=== PATIENT | female | born 1980 | race Two or more races ===

== ENCOUNTER 2016-10-30 21:41 | Emergency (ER) | payer OTHER ==
--- NOTE | ~2016-10-30 | CR72 ---
[facility] A Service of [facility] & [facility] RADIOLOGY TEXT RESULTS PATIENT: ARCADIO COATES LOCATION: CFTX : 82 UNIT #: [id number] AGE: [address]: Shahla Bryson APRN SEX: F ORDER DR: [id number] [facility] [address] [place], [place] [address] [id number] E MR#: [id number] Acc #: [id number] NAME: ARCADIO COATES : 1980 SEX: F STUDY DATE/TIME: 10/31/2016 0040 UNIT: [facility] ROOM: STUDY DESCRIPTION: CR Chest Single View Portable Attending Physician: Shahla Bryson A.P.R.N. Ordering Physician: Shahla Bryson A.P.R.N. Primary Care Physician: No Primary Care Physician MEDICAL IMAGING REPORT This report is preliminary unless electronic signature is present EXAM Portable chest, 10/31, 0048 hours, INDICATION Fever, cough, shortness of air for 2 days. FINDINGS AP portable chest was obtained. No comparison. Lungs are clear. Heart is enlarged. Vascularity is normal. There is no pneumothorax. IMPRESSION Cardiomegaly. No active disease. Dictated by... Cornelius Salas Jr., M.D. THIS IS AN ELECTRONICALLY VERIFIED REPORT Cornelius Salas Jr., M.D. at 10/31/2016 9:22 PM FINESSE/claudia TD: 10/31/2016 12:04 JOB #: [id number] MEDICAL IMAGING REPORT Page 1 of 1 COPY
[~2016-10-30 21:41] MED LIST: AMOXICILLIN875 MG PO; AUGMENTIN400 MG PO; BENADRYL25 MG PO; FLONASE16 GM; IBUPROFEN PO; IBUPROFEN800 MG PO; KEFLEX PO; MOTRIN20 MG/ML PO; NAPROXEN PO; ZYRTEC PO
[2016-10-31 01:09] LABS: BASOPHIL# 0.1 X10e3 (0-0.3); BASOPHIL% 0.8 % (0-2.5); EOSINOPHIL# 0.3 X10e3 (0-0.7); EOSINOPHIL% 3.1 % (0.0-7.0); HEMATOCRIT 36.7 % (35.0-45.0); HEMOGLOBIN 12.3 gm/dL (12.0-16.0); LYMPHOCYTE# 2.4 X10e3 (1.0-3.5); LYMPHOCYTE% 28.1 % (17.0-45.0); MEAN CELL VOLUME 88.3 FL (83-96); MEAN CORPUSCULAR HEMOGLOBIN 29.5 PG (28-34); MEAN CORPUSCULAR HGB CONC 33.4 g/dL (30-36); MEAN PLATELET VOLUME 9.6 FL (6.5-11.5); MONOCYTE# 0.9 X10e3 (0-1.0); MONOCYTE% 11.1 % (3.0-12.0); NEUTROPHIL# 4.8 X10e3 (1.5-7.1); NEUTROPHIL% 56.9 % (40-75); PLATELET COUNT 192 X10e3 (140-420); RED BLOOD COUNT 4.15 X10e (3.90-5.30); RED CELL DISTRIBUTION WIDTH 13.3 % (11.0-15.5); WHITE BLOOD COUNT 8.4 X10e3 (4.0-10.5)
[2016-10-31 01:13] LABS: DIFF IND NO
[2016-10-31 01:34] LABS: ALBUMIN SERUM 4.2 g/dL (3.5-5.0); BILIRUBIN,TOTAL 0.7 mg/dL (0.2-2.0); BUN/CREATININE RATIO 17.5; CALCIUM SERUM 9.3 mg/dL (8.4-10.2); CREATININE SERUM 0.4 mg/dL (0.6-1.4); POTASSIUM 3.9 mmol/L (3.5-5.1); PROTEIN TOTAL SERUM 7.7 g/dL (6.0-8.3)
[2016-10-31 01:43] LABS: URINE APPEARANCE CLEAR; URINE BILIRUBIN NEG (NEG); URINE BLOOD NEG (NEG); URINE COLOR YELLOW; URINE GLUCOSE NEG (NEG); URINE KETONE NEG (NEG); URINE LEUKOCYTE ESTERASE NEG (NEG); URINE NITRATE NEG (NEG); URINE PH 5.5 (5-8); URINE PROTEIN NEG (NEG); URINE SOURCE CLEAN CATCH
[2016-10-31 02:00] LABS: CULTURE INDICATED? NO
== END 2016-10-31 02:09 | disposition home or self-care (01) ==
LOC: CED 21:41 → CFTX 21:41
PROVIDERS: Nurse Practitioner
DX: J06.9 Acute upper respiratory infection, unspecified (principal); R11.2 Nausea with vomiting, unspecified
CPT/HCPCS: 36415; 71010; 80053; 81003; 82150; 83690; 84703; 85025; 96361; 96374; 96375; 99283; J1885; J2405